=== PATIENT | female | born 2005 | race African-American/Black ===

== ENCOUNTER 2023-12-20 15:08 | Emergency (ER) | payer SELFPAY ==
[2023-12-20] MEDS ORDERED: Dexamethasone 10 MG/ML VIAL ONE (15:57)
[2023-12-20] MEDS ORDERED: Ibuprofen 200 MG TAB ONE (15:58)
[2023-12-20 16:26] LABS: Influenza A by NAA Not Detected (NotDetected); Influenza B by NAA Not Detected (NotDetected); SARS-CoV-2 NAA Rapid Test Not Detected (NotDetected)
[2023-12-20] MEDS ORDERED: Bicillin LA 1.2 MILLION UNITS/2 ML SYRINGE IM SCH (16:45)
== END 2023-12-20 17:11 | disposition home or self-care (01) ==
LOC: CSHERS 15:08
DX: J02.0 Streptococcal pharyngitis (principal)
CPT/HCPCS: 87430; 96372; 99283; J0561; J1100